=== PATIENT | female | born 1945 | race Asian ===

== ENCOUNTER → 2018-11-18 14:10 | Outpatient (CLI) | payer MEDICARE, SELFPAY | DX: M81.0 Age-related osteoporosis without current pathological fracture (principal) | CPT/HCPCS: 77080 ==

== ENCOUNTER 2024-10-12 10:23 | Emergency (ER) | payer MEDICARE, SELFPAY ==
[2024-10-12 10:35] VITALS: BP 137/63; PULSE 83; RESP 18; TEMP 36.9; O2SAT 97; BMI 21.9
--- NOTE | 2024-10-12 10:41 | DI.RAD.S_ITS ---
PROCEDURE: XR CHEST 1V INDICATIONS: cough TECHNIQUE: One view of the chest was acquired. COMPARISON: None. FINDINGS: Surgical changes and devices: None. Lungs and pleura: Small hazy left lower lung zone opacity. Mediastinum: Mediastinal contours appear normal. Heart size is normal. Bones and chest wall: No suspicious bony lesions. Overlying soft tissues appear unremarkable. IMPRESSION: Hazy, small left lower lung zone opacity which may indicate early pneumonia. Recommend follow-up in 1-2 months with chest x-ray to ensure resolution. Dictated by: Robles Quiroga M.D. on 10/12/2024 at 11:16 Approved by: Robles Quiroga M.D. on 10/12/2024 at 11:17
--- NOTE | 2024-10-12 12:14 | ED_ITS ---
HPI - URI/Sore Throat <Kandice Max PA-C - Last Filed: 10/12/24 13:17> General Chief Complaint: Upper Respiratory Symptoms Stated Complaint: Coughing ,fever Time Seen by Provider: 10/12/24 12:14 Source: patient Mode of arrival: Ambulatory History of Present Illness HPI Narrative: Ms. Marivel Willard is a very pleasant 78 year old female with no reported past medical history who presents to the emergency department for cough, fever, sore throat over the last 8 days. Patient describes a persistent dry cough that is causing her throat to hurt. Intermittent subjective fevers. Despite not getting better even while taking Tylenol and NyQuil. She denies any history of lung disease or smoking. Reports that she is healthy and just takes vitamins. Denies any known sick contacts denies chest pain, shortness of breath, abdominal pain, nausea, vomiting, ear pain, sinus congestion, nasal discharge or drainage. No antibiotic allergies. Related Data Home Medications Medication Instructions Recorded Confirmed CA PANTOTHENATE/FOLIC ACID/VIT 1 tab PO QDAY ##0 08/03/11 (MULTIVITAMIN) cyanocobalamin (vitamin B-12) 2,500 mcg PO Q DAY ##0 01/19/18 1,000 mcg tablet,extended release Previous Rx's Medication Instructions Recorded doxycycline hyclate 100 mg capsule 100 mg PO BID 5 days #10 caps 10/12/24 Allergies Allergy/AdvReac Type Severity Reaction Status Date / Time No Known Drug Allergies Allergy Verified 10/12/24 10:41 Review of Systems <Kandice Max PA-C - Last Filed: 10/12/24 13:17> Review of Systems ROS Unobtainable: All systems reviewed & are unremarkable except as noted in HPI and below Patient History <Kandice Max PA-C - Last Filed: 10/12/24 13:17> Social History Smoking Status: Never smoker Smoking Status: Never smoker alcohol intake frequency: 0-2 drinks per day Substance Use Type: does not use Exam <Kandice Max PA-C - Last Filed: 10/12/24 13:17> Narrative Exam Narrative: GENERAL: 78 year old patient appears stated age. Well-developed patient, in no acute distress. HEAD: Atraumatic. Normocephalic. EYES: PERRL. Extraocular motions intact. No scleral icterus. No injection or drainage. ENT: Nose without bleeding, purulent drainage. Throat with mild erythema, no exudates. Airway patent. NECK: Trachea midline. Cervical ROM intact. CARDIOVASCULAR: Regular rate and rhythm. RESPIRATORY: ?Nonlabored respirations. ?Speaking in clear, full sentences. Frequent dry cough. Clear to auscultation. Mild bilateral lower lobe expiratory coarse breath sounds. Otherwise lung fernandez clear, no wheezing. GASTROINTESTINAL: Abdomen soft, non-tender, nondistended. EXTREMITIES: No edema or joint tenderness. BACK: Nontender without deformity or crepitance. No flank tenderness. NEURO: AOx3. ?Clear speech. ?Moves all 4 extremities appropriately. SKIN: No rash or erythema of visible areas Initial Vital Signs Initial Vital Signs: Vital Signs Temperature 98.5 F 10/12/24 10:35 Pulse Rate 83 10/12/24 10:35 Respiratory Rate 18 10/12/24 10:35 Blood Pressure 137/63 10/12/24 10:35 Pulse Oximetry 97 10/12/24 10:35 Oxygen Delivery Method Room Air 10/12/24 10:35 <Ashu Gonzalez MD - Last Filed: 10/16/24 14:56> Initial Vital Signs Initial Vital Signs: Vital Signs Temperature 98.5 F 10/12/24 10:35 Pulse Rate 83 10/12/24 10:35 Respiratory Rate 18 10/12/24 10:35 Blood Pressure 137/63 10/12/24 10:35 Pulse Oximetry 97 10/12/24 10:35 Oxygen Delivery Method Room Air 10/12/24 10:35 Course <Kandice Max PA-C - Last Filed: 10/12/24 13:17> Orders Ordered: ED Orders 10/12/24 10:41 Chest [XR chest 1V] Stat 10/12/24 10:42 Respiratory Panel (Film Array) Stat Vital Signs Vital signs: Vital Signs - 8 hr 10/12/24 10:35 Temperature 98.5 F Pulse Rate 83 Respiratory Rate 18 Blood Pressure 137/63 Pulse Oximetry 97 Oxygen Delivery Method Room Air <Ashu Gonzalez MD - Last Filed: 10/16/24 14:56> Orders Ordered: ED Orders 10/12/24 10:41 Chest [XR chest 1V] Stat 10/12/24 10:42 Respiratory Panel (Film Array) Stat Vital Signs Vital signs: Vital Signs - 8 hr 10/12/24 10:35 Temperature 98.5 F Pulse Rate 83 Respiratory Rate 18 Blood Pressure 137/63 Pulse Oximetry 97 Oxygen Delivery Method Room Air MDM - URI/Sore Throat <Kandice Max PA-C - Last Filed: 10/12/24 13:17> Lab Data Labs: Lab Results 10/12/24 Range/Units 10:42 Chlamy pneumoniae PCR Not detected (Not Detect) Adenovirus (PCR) Not detected (Not Detect) B. pertussis DNA (PCR) Not detected (Not Detect) B.parapertussis DNA PCR Not detected (Not Detecte) Coronavirus OC43 (PCR) Not detected (Not Detect) Coronavirus HKU1 (PCR) Not detected (Not Detect) Coronavirus 229E (PCR) Not detected (Not Detect) SARS-CoV-2 (PCR) Not detected (Not Detecte) Coronavirus NL63 (PCR) Not detected (Not Detect) Human Metapneumovir PCR Not detected (Not Detect) Influenza Type A (PCR) Not detected (Not Detect) Influenza Type B (PCR) Not detected (Not Detect) M. pneumoniae (PCR) Not detected (Not Detect) Parainfluenza 1 (PCR) Not detected (Not Detect) Parainfluenza 2 (PCR) Not detected (Not Detect) Parainfluenza 3 (PCR) Not detected (Not Detect) Parainfluenza 4 (PCR) Not detected (Not Detect) RSV (PCR) Not detected (Not Detect) Entero/Rhino (PCR) Detected H (Not Detect) Imaging Data Chest x-ray: My Impression: On my independent interpretation of chest x-ray, no large pleural effusion or pneumothorax. Agree with radiologist's finding of left lower lung zone opacity. Radiologist's Impression: PROCEDURE: XR CHEST 1V INDICATIONS: cough TECHNIQUE: One view of the chest was acquired. COMPARISON: None. FINDINGS: Surgical changes and devices: None. Lungs and pleura: Small hazy left lower lung zone opacity. Mediastinum: Mediastinal contours appear normal. Heart size is normal. Bones and chest wall: No suspicious bony lesions. Overlying soft tissues appear unremarkable. IMPRESSION: Hazy, small left lower lung zone opacity which may indicate early pneumonia. Recommend follow-up in 1-2 months with chest x-ray to ensure resolution. [facility] Narrative Medical decision making narrative: Otherwise healthy 78-year-old female presents to the emergency department for URI symptoms x8 days. Differential diagnosis includes but is not limited to pneumonia, bronchitis, viral URI, sinusitis, pharyngitis, etc. On exam patient is in no acute distress, nontoxic-appearing, all vital signs within normal limits. No wheezing. Frequent dry cough. Plan to obtain chest x-ray and viral swab. Chest x-ray reveals left lower lung opacity which is consistent with clinical picture of pneumonia. Viral swab positive for entero/rhinovirus. We will treat patient with doxycycline 100 mg p.o. 2 times daily for 5 days for community-a cquired pneumonia with no comorbidities. Advised patient follow up with primary care doctor for repeat assessment and also have repeat chest x-ray in 1-2 months to document resolution. Strict ED return precautions discussed. Patient stable for discharge. <Ashu Gonzalez MD - Last Filed: 10/16/24 14:56> Lab Data Labs: Lab Results 10/12/24 Range/Units 10:42 Chlamy pneumoniae PCR Not detected (Not Detect) Adenovirus (PCR) Not detected (Not Detect) B. pertussis DNA (PCR) Not detected (Not Detect) B.parapertussis DNA PCR Not detected (Not Detecte) Coronavirus OC43 (PCR) Not detected (Not Detect) Coronavirus HKU1 (PCR) Not detected (Not Detect) Coronavirus 229E (PCR) Not detected (Not Detect) SARS-CoV-2 (PCR) Not detected (Not Detecte) Coronavirus NL63 (PCR) Not detected (Not Detect) Human Metapneumovir PCR Not detected (Not Detect) Influenza Type A (PCR) Not detected (Not Detect) Influenza Type B (PCR) Not detected (Not Detect) M. pneumoniae (PCR) Not detected (Not Detect) Parainfluenza 1 (PCR) Not detected (Not Detect) Parainfluenza 2 (PCR) Not detected (Not Detect) Parainfluenza 3 (PCR) Not detected (Not Detect) Parainfluenza 4 (PCR) Not detected (Not Detect) RSV (PCR) Not detected (Not Detect) Entero/Rhino (PCR) Detected H (Not Detect) Discharge Plan Departure Patient Disposition: Home Clinical Impression: Rhinovirus Pneumonia Qualifiers: Pneumonia type: due to unspecified organism Laterality: left Lung location: lower lobe of lung Qualified Code(s): J18.9 - Pneumonia, unspecified organism Instructions: DI for Pneumonia -- Adult Activity Restrictions/Additional Instructions: Today you tested positive for entero/rhinovirus which is a common cold virus. Your chest x-ray also revealed pneumonia. Please complete the full 5 day course of antibiotics and follow up with your primary care doctor within the next week for repeat evaluation. You will need a repeat chest x-ray in 1-2 months to make sure the pneumonia has gone away. Please rest, take [id number] cough medicine or cough drops, and drink warm tea with honey. Please follow up with your primary care doctor within the next 2-3 days. Return to the emergency department for any new or worsening symptoms, or any other concerns. Thank you for letting me participate in your care, Kandice Max PA-C CHEST X-RAY IMPRESSION: Hazy, small left lower lung zone opacity which may indicate early pneumonia. Recommend follow-up in 1-2 months with chest x-ray to ensure resolution. Prescriptions: New doxycycline hyclate 100 mg capsule 100 mg PO BID 5 Days Qty: 10 0RF No Action CA PANTOTHENATE/FOLIC ACID/VIT (MULTIVITAMIN) 1 tab PO QDAY Qty: 0 cyanocobalamin (vitamin B-12) 1,000 MCG tablet extended release 2,500 mcg PO Q DAY Qty: 0 Stand Alone Forms: Patient Portal/API/Survey ED Sign-out <Ashu Gonzalez MD - Last Filed: 10/16/24 14:56> [facility] I was immediately available in the department for consultation. ?This documentation has been reviewed and I agree with assessment and plan. Supervised by Ashu Gonzalez MD
[2024-10-12 12:33] LABS: Adenovirus Not Detected (Not Detect); B. parapertussis Not Detected (Not Detecte); Bordetella pertussis Not Detected (Not Detect); Chlamydophila pneumoniae Not Detected (Not Detect); Coronavirus 229E Not Detected (Not Detect); Coronavirus HKU1 Not Detected (Not Detect); Coronavirus NL 63 Not Detected (Not Detect); Coronavirus OC43 Not Detected (Not Detect); Human Metapneumovirus Not Detected (Not Detect); Human Rhinovirus/Enterovirus Detected (Not Detect); Influenza A Not Detected (Not Detect); Influenza B Not Detected (Not Detect); Mycoplasma pneumoniae Not Detected (Not Detect); Parainfluenza Virus 1 Not Detected (Not Detect); Parainfluenza Virus 2 Not Detected (Not Detect); Parainfluenza Virus 3 Not Detected (Not Detect); Parainfluenza Virus 4 Not Detected (Not Detect); Respiratory Syncytial Virus Not Detected (Not Detect); SARS- CoV-2 Not Detected (Not Detecte)
[2024-10-12 13:21] VITALS: BP 130/60; PULSE 79; RESP 16; TEMP 36.4; O2SAT 97
== END 2024-10-12 13:22 | disposition home or self-care (01) ==
PROVIDERS: Emergency Medicine; Emergency Provider Physician Assistant
DX: J18.9 Pneumonia, unspecified organism (principal); B34.8 Other viral infections of unspecified site; R50.9 Fever, unspecified; J02.9 Acute pharyngitis, unspecified; R05.9 Cough, unspecified
CPT/HCPCS: 71045; 87633; 99281; 99283